=== PATIENT | female | born 1945 | race Caucasian/White ===

== ENCOUNTER 2016-11-04 17:16 | Inpatient (IN) ==
--- NOTE | 2016-11-04 18:01 | EKG Report ---
Stationary ECG Study [facility] ER Test Date: 11/04/2016 5:56:05 PM Pat Name: ZEESHAN RILEY Department: Room: Gender: F Line Technician: : 1945 Requested by: Linda Lomeli Order Number: [id number] Reading MD: SHAINA PIZANO Intervals [place] Rate: 67 P: 37 SC: 158 QRS: 32 QRSD: 96 T: 55 QT: 395 QTc: 411 Interpretive Statements SINUS RHYTHM LOW QRS VOLTAGE IN PRECORDIAL LEADS Electronically Signed On 11-04-16 18:51:13 CDT by SHAINA PIZANO [email or web address]
--- NOTE | 2016-11-04 18:33 | XRay Report ---
Single view the chest. Indication: Back pain and shoulder pain and jaw pain. The heart is upper limits of normal in size. Calcified lymph nodes are seen in the AP window. A calcified granuloma is present in the left lung base. There are mild hypoaeration changes at the lung bases. No consolidation, pneumothorax, or pleural effusion. Impression: Basilar hypoaeration. Evidence of previous granulomatous disease. PROCEDURE INTERPRETED AT [facility] DEPARTMENT OF RADIOLOGY Final Report Signed by: Dr. Willow Jesus
[2016-11-04 19:07] LABS: Basophils # 0.1 10*3/uL (0.0-0.2); Basophils % 0.7 % (0.0-0.8); Eosinophils # 0.1 10*3/uL (0.0-0.87); Eosinophils % 1.5 % (0.00-10.9); Hematocrit 37.3 VOL% (35.7-47.0); Hemoglobin 13.4 GM/DL (12.0-16.0); Immature Granulocytes % 0.4 %; Immature Granulocytes Absolute 0.03 #; Lymphocytes # 3.8 10*3/uL (1.4-4.0); Lymphocytes % 53.8 % (21.3-54.2); Mean Corpuscular HGB Conc 35.9 GM/DL (32-36); Mean Corpuscular Hemoglobin 31 PG (27-34); Mean Corpuscular Volume 85.7 FL (87-102); Mean Platelet Volume 8.8 FL (9.6-12.0); Monocytes # 0.6 10*3/uL (0.11-0.8); Monocytes % 8.4 % (1.7-12.7); Neutrophils # 2.5 10*3/uL (1.4-7.4); Neutrophils % 35.2 % (38.7-73.9); Platelet Count 293 T/CUMM (130-400); Red Blood Count 4.35 MC/CUMM (3.8-5.5); Red Cell Distribution Width 12.8 % (9.3-17.3); White Blood Count 7.1 T/CUMM (4-12)
[2016-11-04] MEDS ORDERED: ONDANSETRON 4 MG/2 ML VIAL IV STA (19:28)
[2016-11-04] MEDS ORDERED: MORPHINE 2 MG/1 ML SYRINGE IV STA (19:28)
[2016-11-04] MEDS ORDERED: PANTOPRAZOLE 40 MG VIAL IV STA (19:28)
[2016-11-04] MEDS ORDERED: ALUM/MAG/SIMETH/LIDO VISC 1:1 30 ML BOTTLE PO STA (19:28)
[2016-11-04] MEDS ORDERED: NITROGLYCERIN 2% OINT 1 INCH/GM PACK TOP STA (19:28)
[2016-11-04] MEDS ORDERED: ASPIRIN 325 MG TABLET PO STA (19:28)
--- NOTE | 2016-11-04 19:31 | Emergency Department Note ---
IRavi Emily, am scribing for, and in the presence of, James Cool MD 19: 13. ISilvina Charles R, MD, personally performed the services described in this documentation, ascribed by Carey Rodrgiues in my presence, and it is both accurate and complete . Arrival - Arrival Chief Complaint: Back Stated Complaint: Pain in back between shoulder blades ED Nursing Triage Note: PT AMBULATORY TO TRIAGE WITH C/O HAVING PAIN TO UPPER BACK BETWEEN SHOULDER BLADES. PT STATES SHE FEELS LIKE SHE HAS INDIGESTION. PT DENIES ANY SOB OR N/V. PT STATES PAIN TO LEFT JAW AND SHOULDER PAIN. Mode of Arrival: Ambulatory Limitations: No Limitations Source: Patient Time Seen by Provider: 11/04/16 18:21 - History of Present Illness HPI Narrative: Pt is a 71 y/o female who came to ED with c/o pain between shoulder blades, along with intermittent bilateral jaw pain and shooting left arm pain that started 2-3 days ago but has become more frequent. Pt reports calling Dr. Stephanie Neal office for appt this morning, but no response yet and called Catarina 's office for check for next week, due to these sxs. She notes having more belching than nml, last night. Pt states waking up the other morning in pain, but eased up and she went back to bed. She had a recent stress test, in which she states she passed. However, her brother passed his stress test and found on his next one two aneurysms and CAD; and Mother had extensive heart disease. Pt denies chest pain, SOB, nausea, diaphoresis, orthopnea, weakness. Pt states she has never drank ETOH, smoked tobacco, or used drugs. She does take thyroid medication daily and has borderline DM. Pt states this pain lasts for awhile, but will ease up on its own. Pt denies lifting heavy objects or recent injury. Onset (ago): day(s) Consistency: constant Severity: mild Severity scale (1-10): 3 Quality: aching Allergies/Adverse Reactions: Allergies Allergy/AdvReac Type Severity Reaction Status Date / Time Sulfa (Sulfonamide Allergy HIVES Verified 11/04/16 17:56 Antibiotics) Home Medications: Home Medications Medication Instructions Recorded Confirmed Type Aspirin 325 mg PO BEDTIME 11/04/16 11/04/16 History Atorvastatin [Lipitor] 10 mg PO BEDTIME 11/04/16 11/04/16 History Esomeprazole Magnesium [Nexium] 20 mg PO BID 11/04/16 11/04/16 History Estrogens(Conj) Tab [Premarin Tab] 0.3 mg PO TUSA 11/04/16 11/04/16 History Fexofenadine [Karen] 180 mg PO BEDTIME 11/04/16 11/04/16 History Gemfibrozil [Gemfibrozil] 600 mg PO QAM 11/04/16 11/04/16 History Levothyroxine Tab [Synthroid Tab] 75 mcg PO DAILY@0700 11/04/16 11/04/16 History Losartan Potassium [Losartan 50 mg PO QAM 11/04/16 11/04/16 History Potassium] Metoprolol Succinate Xl [Toprol Xl] 25 mg PO QAM 11/04/16 11/04/16 History [place]-3/Dha/Epa/Fish Oil [Fish Oil 2 each PO BEDTIME 11/04/16 11/04/16 History 1,000 mg Softgel] Ropinirole HCl [Ropinirole HCl] 2 mg PO BEDTIME 11/04/16 11/04/16 History hydroCHLOROthiazide 25 mcg PO QAM 11/04/16 11/04/16 History [Hydrochlorothiazide] Review of System - Review of System 12 point system: reviewed and no additional remarkable complaints except as stated - Review of System Constitutional: Absent: chills, diaphoresis, fever Respiratory: Absent: cough, respiratory distress Cardiovascular: Absent: dyspnea on exertion, orthopnea Gastrointestinal: Absent: abdominal pain, nausea, vomiting Musculoskeletal: Present: arm pain (left arm), neck pain (bilateral jaw), upper back pain (between shoulder blades starting point). Absent: leg pain Skin: Absent: rash Neurological: Absent: headache, numbness, paresthesias Medical,Surgical,& Family Hx - Surgical History Surgical History: noncontributory - Family History Family History: noncontributory - Social History Smoking Status: Never smoker Frequency of Alcohol Use: None Type of Drug Use: None Marital Status: Single Lives With:: Alone Functional capacity: independent ambulation Exam Vital Signs: Vital Signs Temperature 98.6 F 11/04/16 18:15 Pulse Rate 69 09/18/17 18:45 Respiratory Rate 10 L 11/04/16 18:45 Blood Pressure 153/88 11/04/16 18:45 O2 Sat by Pulse Oximetry 100 11/04/16 19:00 - General General appearance: alert, in no apparent distress - Head Head exam: Present: atraumatic, normocephalic - Eye Eye exam: Present: PERRL, EOMI - ENT ENT exam: Present: mucous membranes moist. Absent: mucous membranes dry - Neck Neck exam: Present: full ROM - Chest Chest inspection: Present: symmetric chest wall rise - Respiratory Respiratory exam: Present: normal lung sounds bilaterally. Absent: respiratory distress - Cardiovascular Cardiovascular exam: Present: regular rate, normal rhythm, normal heart sounds - Abdominal Exam Abdominal exam: Present: soft. Absent: tenderness - Extremities Exam Extremities exam: Present: full ROM. Absent: pedal edema - Neurological Exam Neurological exam: Present: alert, oriented X3, CN II-XII intact. Absent: motor sensory deficit - Psychiatric Psychiatric exam: Present: normal affect, normal mood - Skin Skin exam: Present: warm, dry Course - Consultations Consultation #1: Dr. Kadi Jeffries will admit for Dr. Adalberto Neal Time: 21:30 Results - Labs CBC & BMP: 11/04/16 18:58 11/04/16 18:58 Lab Results: I have reviewed the patients labs Labs: Laboratory Tests 11/04/16 18:58 WBC 7.1 RBC 4.35 Hgb 13.4 Hct 37.3 MCV 85.7 L Plt Count 293 MPV 8.8 L Neut % (Auto) 35.2 L Laboratory Tests 11/04/16 11/04/16 11/04/16 18:58 18:58 18:58 Total Counted 100 Segmented Neutrophils 42 L Lymphocytes 53 Monocytes 4 Eosinophils 1 Platelet Estimate Normal D-Dimer, Quantitative Sodium 138 Potassium 3.6 Chloride 105 Carbon Dioxide 26 BUN 21 H BUN/Creatinine Ratio 23.00 H Total Creatine Kinase 195 H CK-MB (CK-2) 2.8 Troponin I < 0.015 Lipase Urine Color Straw Urine Appearance Clear Urine pH 6.0 Ur Specific [place] 1.005 Urine Blood Negative Urine Nitrate Negative Urine Urobilinogen < 2.0 H Urine Leukocytes Negative Urine RBC <1 Urine WBC <1 11/04/16 11/04/16 18:58 19:28 Total Counted Segmented Neutrophils Lymphocytes Monocytes Eosinophils Platelet Estimate D-Dimer, Quantitative <= 0.5 Sodium Potassium Chloride Carbon Dioxide BUN BUN/Creatinine Ratio Total Creatine Kinase CK-MB (CK-2) Troponin I Lipase 239.0 Urine Color Urine Appearance Urine pH Ur Specific [place] Urine Blood Urine Nitrate Urine Urobilinogen Urine Leukocytes Urine RBC Urine WBC Disposition Clinical Impression: Chest pain Case discussed with: patient, patient's family Disposition: Still a Patient Condition: Stable Time of Disposition: 21:30
[2016-11-04 19:33] LABS: Apearance,Urine CLEAR (Clear); Bilirubin,Urine Negative (Negative); Blood, Urine Negative (Negative); Glucose,Urine (UA) Negative (Negative); Ketones,Urine Negative (Negative); Nitrite,Urine Negative (Negative); Protein,Urine Negative; RBC,Urine <1 /HPF (0-4); Urine Color Straw (Yellow); Urine Specific Gravity 1.005 (1.001-1.035); Urine Urobilinogen < 2.0 EU/DL (0.2-1.0); WBC,Urine <1 /HPF (0-6)
[2016-11-04 19:37] LABS: Alanine Aminotransferase 45 U/L (13-56); Albumin 4.1 G/DL (3.4-5.0); Alkaline Phosphatase 107 U/L (45-117); Aspartate Amino Transferase 32 U/L (0-37); Blood Urea Nitrogen 21 MG/DL (7-18); Calcium 9.3 MG/DL (8.5-10.1); Magnesium 2.4 MG/DL (1.8-2.4); Potassium 3.6 MMOL/L (3.5-5.1); Sodium 138 MMOL/L (136-145); Total Protein 7.6 G/DL (6.4-8.3); Troponin I Only < 0.015 NG/ML (0.00-0.045)
[2016-11-04] MEDS ORDERED: ALUM/MAG/SIMETH/LIDO VISC 1:1 30 ML BOTTLE PO ONE (19:44)
[2016-11-04] MEDS ORDERED: NITROGLYCERIN 2% OINT 1 INCH/GM PACK TOP ONE (19:44)
[2016-11-04] MEDS ORDERED: ASPIRIN 325 MG TABLET ONE (19:44)
[2016-11-04] MEDS ORDERED: PANTOPRAZOLE 40 MG VIAL IV ONE (19:44)
[2016-11-04] MEDS ORDERED: ONDANSETRON 4 MG/2 ML VIAL ONE (19:44)
[2016-11-04] MEDS ORDERED: MORPHINE 2 MG/1 ML SYRINGE ONE (19:44)
[2016-11-04 19:49] LABS: Glucose 89 MG/DL (74-106); Osmolality,Calculated 276.7 MOS/KG (273-304)
[2016-11-04 20:05] LABS: Eosinophils 1 % (0-10); Lymphocytes 53 % (20-55); Platelet Estimate Normal; Segmented Neutrophils 42 % (50-85); Total Cells Counted 100
[2016-11-04] MEDS ORDERED: ENOXAPARIN 100 MG/ML SYRINGE SUBCUT STA (21:04)
[2016-11-04] MEDS ORDERED: ENOXAPARIN 80 MG/0.8 ML SYRINGE SUBCUT ONE (21:07)
[2016-11-04] MEDS ORDERED: ONDANSETRON 4 MG/2 ML VIAL IV PRN (21:56)
[2016-11-04] MEDS ORDERED: MORPHINE 2 MG/1 ML SYRINGE IV PRN (21:56)
[2016-11-04] MEDS ORDERED: ACETAMINOPHEN 325 MG TABLET PO PRN (21:56)
[2016-11-04] MEDS: SODIUM CHLORIDE 0.9% 1,000 ML IV SCH (23:57)
[2016-11-05] MEDS ORDERED: MORPHINE 2 MG/1 ML SYRINGE ONE
[2016-11-05] MEDS: rOPINIRole 1 MG TABLET PO SCH ×2 (00:17→20:44)
[2016-11-05] MEDS ORDERED: NITROGLYCERIN 2% OINT 1 INCH/GM PACK TOP ONE (06:36)
[2016-11-05] MEDS: NITROGLYCERIN 2% OINT 1 INCH/GM PACK TOP SCH ×4 (06:36→17:58)
[2016-11-05 07:42] LABS: Apearance,Urine CLEAR (Clear); Bilirubin,Urine Negative (Negative); Blood, Urine Negative (Negative); Glucose,Urine (UA) Negative (Negative); Ketones,Urine Negative (Negative); Nitrite,Urine Negative (Negative); Protein,Urine Negative; RBC,Urine <1 /HPF (0-4); Squamous Epithelial Cell,Urine Occasional /HPF (0-10); Urine Color Yellow (Yellow); Urine Specific Gravity 1.011 (1.001-1.035); Urine Urobilinogen < 2.0 EU/DL (0.2-1.0); WBC,Urine <1 /HPF (0-6)
[2016-11-05] MEDS: LEVOTHYROXINE 75 MCG TABLET PO SCH (07:47)
--- NOTE | 2016-11-05 08:17 | EKG Report ---
Stationary ECG Study [facility] ER Test Date: 11/05/2016 8:15:54 AM Pat Name: ZEESHAN RILEY Department: Room: Gender: F High Pressure Operator: : 1945 Requested by: James Lang Order Number: [id number] Reading MD: MADELEINE RIBERA Intervals [place] Rate: 59 P: 39 [place]: 168 QRS: 66 QRSD: 97 T: 69 QT: 421 QTc: 420 Interpretive Statements SINUS RHYTHM at 59 bpm LOW QRS VOLTAGE IN PRECORDIAL LEADS Electronically Signed On 11-08-16 17:24:42 CDT by MADELEINE RIBERA [email or web address]
[2016-11-05] MEDS ORDERED: ASPIRIN EC 81 MG TABLET PO SCH (09:00)
[2016-11-05] MEDS ORDERED: PANTOPRAZOLE 40 MG VIAL IV SCH (09:00)
[2016-11-05] MEDS ORDERED: ENOXAPARIN 80 MG/0.8 ML SYRINGE SUBCUT SCH (09:00)
[2016-11-05 09:41] LABS: Basophils % 0.8 % (0.0-0.8); Eosinophils # 0.1 10*3/uL (0.0-0.87); Eosinophils % 1.3 % (0.00-10.9); Hematocrit 33.1 VOL% (35.7-47.0); Hemoglobin 11.8 GM/DL (12.0-16.0); Immature Granulocytes % 0.4 %; Immature Granulocytes Absolute 0.02 #; Lymphocytes # 2.9 10*3/uL (1.4-4.0); Lymphocytes % 55.5 % (21.3-54.2); Mean Corpuscular HGB Conc 35.6 GM/DL (32-36); Mean Corpuscular Hemoglobin 31 PG (27-34); Mean Corpuscular Volume 86.6 FL (87-102); Mean Platelet Volume 8.7 FL (9.6-12.0); Monocytes # 0.6 10*3/uL (0.11-0.8); Monocytes % 10.5 % (1.7-12.7); Neutrophils # 1.7 10*3/uL (1.4-7.4); Neutrophils % 31.5 % (38.7-73.9); Platelet Count 227 T/CUMM (130-400); Red Blood Count 3.82 MC/CUMM (3.8-5.5); Red Cell Distribution Width 12.9 % (9.3-17.3); White Blood Count 5.2 T/CUMM (4-12)
[2016-11-05 10:04] LABS: Alanine Aminotransferase 36 U/L (13-56); Albumin 3.4 G/DL (3.4-5.0); Alkaline Phosphatase 84 U/L (45-117); Aspartate Amino Transferase 27 U/L (0-37); Bilirubin,Total < 0.39 MG/DL (0.2-1.0); Blood Urea Nitrogen 18 MG/DL (7-18); Calcium 8.5 MG/DL (8.5-10.1); Cholesterol 178 MG/DL (50-200); Glucose 146 MG/DL (74-106); HDL Cholesterol 46 MG/DL (40-60); Magnesium 2.4 MG/DL (1.8-2.4); Osmolality,Calculated 287.1 MOS/KG (273-304); Potassium 3.8 MMOL/L (3.5-5.1); Risk Ratio 3.87; Sodium 142 MMOL/L (136-145); Total Protein 5.8 G/DL (6.4-8.3); Triglycerides 299 MG/DL (2-150); VLDL CHOLESTEROL 59.8 MG/DL
[2016-11-05 10:06] LABS: Eosinophils 1 % (0-10); Giant Platelets Few; Hypochromasia 1+; Lymphocytes 57 % (20-55); Ovalocytes Slight; Platelet Estimate Adequate; Segmented Neutrophils 31 % (50-85); Total Cells Counted 100
[2016-11-05] MEDS ORDERED: ACETAMINOPHEN 325 MG TABLET ONE (11:42)
[2016-11-05] MEDS: LOSARTAN 50 MG TABLET PO SCH ×2 (13:31→15:09)
[2016-11-05] MEDS: DOCUSATE SODIUM 100 MG CAPSULE PO SCH ×3 (13:31→20:43)
[2016-11-05] MEDS: GEMFIBROZIL 600 MG TABLET PO SCH ×2 (13:31→15:09)
[2016-11-05] MEDS: METOPROLOL SUCCINATE XL 25 MG TABLET PO SCH ×2 (13:32→15:10)
[2016-11-05] MEDS: PANTOPRAZOLE 40 MG TABLET PO SCH ×2 (13:32→20:43)
--- NOTE | 2016-11-05 13:50 | Cardiology Consult Note ---
Assessment and Plan - Time spent with patient Time spent with patient: Greater than 30 minutes (1) Back pain Status: Acute Assessment and plan: SEE PLAN OF CARE LISTED BELOW. Current Visit: Yes (2) GERD (gastroesophageal reflux disease) Status: Chronic Assessment and plan: SEE PLAN OF CARE LISTED BELOW. Current Visit: Yes (3) History of stomach ulcers Status: Chronic Assessment and plan: SEE PLAN OF CARE LISTED BELOW. Current Visit: Yes (4) Dyslipidemia Status: Chronic Assessment and plan: SEE PLAN OF CARE LISTED BELOW. Current Visit: Yes (5) Hypertension Status: Chronic Assessment and plan: SEE PLAN OF CARE LISTED BELOW. Current Visit: Yes (6) Anemia Status: Chronic Assessment and plan: SEE PLAN OF CARE LISTED BELOW. Current Visit: Yes (7) Hypothyroid Status: Chronic Assessment and plan: SEE PLAN OF CARE LISTED BELOW. Current Visit: Yes (8) Hypertriglyceridemia Status: Acute Assessment and plan: SEE PLAN OF CARE LISTED BELOW. Current Visit: Yes History of Present Illness - Data of Consult Patient: known to practice within the last 3 years Consult date: 11/05/16 Requesting Physician: James Cool - Consult Narrative Reason for consult: back pain History of present illness: FULL STACK DEVELOPER : Dr. Elmore Ms. Baez is a 71 year old female without known coronary artery disease, routinely followed by Dr. bardales. Cardiac risk factors include: Hypertension , dyslipidemia, family history of CAD (mother and brother) and sedentary lifestyle. Lifetime non-smoker. Past medical history includes: Hypothyroidism , anxiety and gastric ulcer. Patient just recently saw Dr. badrales in the cardiology clinic September of this year. She was anxious and requested cardiac workup as her brother recently underwent CABG in August. She underwent cardiac stress test September 26, 2016. She had fair functional capacity reaching 7.1 mets. Normal perfusion study, low risk for future cardiovascular events. LVEF calculated to be 91%. No echocardiogram noted and I will mass. Has never undergone LHC. Patient presented to [facility] yesterday evening with complaints of back pain located in the middle of her scapula that onset 2-3 days ago. Describes it as a squeezing/intense aching pain. Unable to rate her pain on a scale from 1-10. She reports that she cannot specifically remember what she was doing when this pain began. This has been intermittent, coming and going since that time. She reports after going to a birthday constitution party and eating very badly earlier in the day, it awoke her from her sleep several times later that night. At times she has also experienced bilateral jaw pain and left arm pain that only last seconds. No associated shortness of breath, diaphoresis or nausea. She denies any type of chest pain, heaviness or tightness. Absolutely no exertional component has been noted. She tells me that she goes up and down her stairs in her home multiple times a day which does not bring on or worsen her back, jaw or left arm pain. When asked about aggravating factors, she tells me that she has recently noticed that it comes on every time after she eats a meal. Of note, she does have history of gastric ulcer. She also confirms indigestion. She reports that her back pain is sometimes made better when she stretches it out. She often belches when this pain onsets. However, she is unsure if this actually alleviates or helps the pain. Certain positioning does not alleviate or exacerbate her pain. Not reproducible to light palpation. Not worse with deep breath. Yesterday, she became concerned about her symptomology. She called Dr. bardales's office and was instructed to report to the ED for further evaluation. She has since been admitted to family medicine's practice. Housed in the telemetry unit. Cardiology has been consulted to further evaluate her symptomology. Patient was seen and examined on the telemetry unit. Currently without chest pain, heaviness or tightness. Denies back pain, arm pain or jaw pain. Atypical in nature. Sounds GI. Negative cardiac biomarkers. EKG without ischemic change. Patient just recently had low risk stress test September 2016. At this point, we will continue to cycle cardiac biomarkers and EKGs. Echocardiogram ordered. Continue aspirin, beta-blockade, ARB, lipid-lowering agent and nitrates. I will further discuss with Dr. Walker regarding the need for further cardiac workup. Further plan and addendum to follow. Patient may benefit from GI evaluation. IMPRESSION AND PLAN 1. BACK PAIN WITH INTERMITTENT LEFT ARM AND JAW PAIN - Atypical in nature. Sounds GI. Negative cardiac biomarkers. EKG without ischemic change. Patient just recently had low risk stress test September 2016. At this point, we will continue to cycle cardiac biomarkers and EKGs. Echocardiogram ordered. Continue aspirin, beta-blockade, ARB, lipid-lowering agent and nitrates. I will further discuss with Dr. Walker regarding the need for further cardiac workup. Further plan and addendum to follow. Patient may benefit from GI evaluation. 2. HYPERTENSION - Under well control. Continue current plan of care. 3. DYSLIPIDEMIA - Continue lipid-lowering agent. LDL 85. 4. ANEMIA - Chronic, stable. Daily CBC. 5. HISTORY OF ANXIETY - Under well control. Management per attending. 6. HYPOTHYROIDISM - Continue thyroid replacement. TSH added to lab draw. 7. HISTORY OF GASTRIC ULCER IN THE REMOTE PAST - Continue PPI. 8. HYPERTRIGLYCERIDEMIA - Increase fish oil dose. I will check hemoglobin A1c. 9. GERD - Continue PPI. CC: Adalberto Neal MD - Home Medications and Allergies Home Medications: Home Medications Medication Instructions Recorded Confirmed Type Aspirin 325 mg PO BEDTIME 11/04/16 11/04/16 History Atorvastatin [Lipitor] 10 mg PO BEDTIME 11/04/16 11/04/16 History Esomeprazole Magnesium [Nexium] 20 mg PO BID 11/04/16 11/04/16 History Estrogens(Conj) Tab [Premarin Tab] 0.3 mg PO TUSA 11/04/16 11/04/16 History Fexofenadine [Karen] 180 mg PO BEDTIME 11/04/16 11/04/16 History Gemfibrozil [Gemfibrozil] 600 mg PO QAM 11/04/16 11/04/16 History Levothyroxine Tab [Synthroid Tab] 75 mcg PO DAILY@0700 11/04/16 11/04/16 History Losartan Potassium [Losartan 50 mg PO QAM 11/04/16 11/04/16 History Potassium] Metoprolol Succinate Xl [Toprol Xl] 25 mg PO QAM 11/04/16 11/04/16 History [place]-3/Dha/Epa/Fish Oil [Fish Oil 2 each PO BEDTIME 11/04/16 11/04/16 History 1,000 mg Softgel] Ropinirole HCl [Ropinirole HCl] 2 mg PO BEDTIME 11/04/16 11/04/16 History hydroCHLOROthiazide 25 mcg PO QAM 11/04/16 11/04/16 History [Hydrochlorothiazide] Allergies/Adverse Reactions: Allergies Allergy/AdvReac Type Severity Reaction Status Date / Time Sulfa (Sulfonamide Allergy HIVES Verified 11/04/16 17:56 Antibiotics) - Constitutional Constitutional: Present: as per HPI. Absent: chills, fatigue, fever(s), frequent falls, headache(s), weakness, weight gain, weight loss - Cardiovascular Cardiovascular: Present: as per HPI, radiating jaw, neck or arm pain. Absent: chest pain at rest, chest pain with activity, claudication, diaphoresis, dyspnea , dyspnea on exertion, edema, lightheadedness, orthopnea, palpitations, PND - Respiratory Respiratory: Present: as per HPI. Absent: cough, dyspnea, hemoptysis, dyspnea on exertion, wheezing, snoring, pain on inspiration, change in phlegm color - Gastrointestinal Gastrointestinal: Present: as per HPI, abdominal pain - Neurological Neurological: Present: as per HPI. Absent: abnormal gait, abnormal speech, behavioral changes, disequilibrium, dizziness, frequent falls, syncope Medical,Surgical,& Family Hx - Medical History Cardio: History of: Hypertension Endocrine: History of: Dyslipidemia Rheumatology: History of;: Rheumatoid Arthritis Genitourinary: History of: Recurring Urinary Tract Infections Gastrointestinal: History of: GERD, GI Problems (constipation) - Family History Family History: Reports;: Family Cancer (skin grandfather), Family Diabetes, Family Heart Disease, Family Hypertension, Family Stroke - Social History Smoking Status: Never smoker Frequency of Alcohol Use: None Type of Drug Use: None Physical Examination Vital Signs Temp Pulse Resp BP Pulse Ox 98.6 F 72 17 140/87 98 11/04/16 17:52 11/04/16 17:52 11/04/16 17:52 11/04/16 17:52 11/04/16 17:52 Exam: General: Appears well with no apparent distress. Pleasant and cooperative. Appears comfortable. HEENT: PERRL, normocephalic, atraumatic. Mucous membranes moist. No jaundice noted. Conjunctiva moist and clear, sclerae anicteric Neck: No JVD/HJR, no thyromegaly or lymphadenopathy noted. No carotid bruit appreciated Cardiac: Regular rate and rhythm. Soft systolic murmur. Lungs: Clear to auscultation without accessory muscle use to assist the respiratory pattern. Not requiring oxygen. Abdomen: Soft, bowel sounds normoactive. Nontender and nondistended. No abdominal bruit or thrill noted. No masses noted. Extremities: No clubbing, cyanosis noted. No edema noted. Upper extremity pulses 2+. Lower extremity pulses 2+. Capillary refill less than 3 seconds. Skin: No unusual lesions or rashes. No skin breakdown appreciated. Neuro: Awake, alert and oriented 3. Moves all extremities well without hemiparesis or paralysis. No essential tremor is appreciated. Result/EKG - Labs CBC & BMP: 11/05/16 09:25 11/05/16 09:25 Lab Results: I have reviewed the past 24 hour labs Labs: Laboratory Results - last 24 hr 11/04/16 11/04/16 11/04/16 18:58 18:58 18:58 WBC 7.1 RBC 4.35 Hgb 13.4 Hct 37.3 MCV 85.7 L MCH 31 MCHC 35.9 RDW 12.8 Plt Count 293 MPV 8.8 L Neut % (Auto) 35.2 L Lymph % (Auto) 53.8 Nicholas % (Auto) 8.4 Eos % (Auto) 1.5 Baso % (Auto) 0.7 Neut # (Auto) 2.5 Lymph # (Auto) 3.8 Nicholas # (Auto) 0.6 Eos # (Auto) 0.1 Baso # (Auto) 0.1 Total Counted 100 Immature Gran % 0.4 Nucleated RBC % 0.0 Immature Gran # 0.03 Segmented Neutrophils 42 L Lymphocytes 53 Monocytes 4 Eosinophils 1 Nucleated RBCs # 0.00 Platelet Estimate Normal Giant Platelets Immature Plt Fraction 0.0 Hypochromasia Ovalocytes D-Dimer, Quantitative Sodium 138 Potassium 3.6 Chloride 105 Carbon Dioxide 26 Anion Gap 10.6 BUN 21 H Creatinine 0.90 GFR Calculation 66 BUN/Creatinine Ratio 23.00 H Glucose 89 Calculated Osmolality 276.7 Calcium 9.3 Magnesium 2.4 Total Bilirubin 0.50 AST 32 ALT 45 Alkaline Phosphatase 107 Total Creatine Kinase 195 H CK-MB (CK-2) 2.8 Troponin I < 0.015 B-Natriuretic Peptide 63 Total Protein 7.6 Albumin 4.1 Globulin 3.5 Albumin/Globulin Ratio 1.1 Triglycerides Cholesterol LDL Cholesterol VLDL Cholesterol HDL Cholesterol Heart Disease Risk Ratio Lipase Urine Color Urine Appearance Urine pH Ur Specific [place] Urine Protein Urine Glucose (UA) Urine Ketones Urine Blood Urine Nitrate Urine Bilirubin Urine Urobilinogen Urine Leukocytes Urine RBC Urine WBC Ur Squamous Epith Cells Ur Culture Indicated? 11/04/16 11/04/16 11/04/16 18:58 18:58 19:28 WBC RBC Hgb Hct MCV MCH MCHC RDW Plt Count MPV Neut % (Auto) Lymph % (Auto) Nicholas % (Auto) Eos % (Auto) Baso % (Auto) Neut # (Auto) Lymph # (Auto) Nicholas # (Auto) Eos # (Auto) Baso # (Auto) Total Counted Immature Gran % Nucleated RBC % Immature Gran # Segmented Neutrophils Lymphocytes Monocytes Eosinophils Nucleated RBCs # Platelet Estimate Giant Platelets Immature Plt Fraction Hypochromasia Ovalocytes D-Dimer, Quantitative <= 0.5 Sodium Potassium Chloride Carbon Dioxide Anion Gap BUN Creatinine GFR Calculation BUN/Creatinine Ratio Glucose Calculated Osmolality Calcium Magnesium Total Bilirubin AST ALT Alkaline Phosphatase Total Creatine Kinase CK-MB (CK-2) Troponin I B-Natriuretic Peptide Total Protein Albumin Globulin Albumin/Globulin Ratio Triglycerides Cholesterol LDL Cholesterol VLDL Cholesterol HDL Cholesterol Heart Disease Risk Ratio Lipase 239.0 Urine Color Straw Urine Appearance Clear Urine pH 6.0 Ur Specific [place] 1.005 Urine Protein Negative Urine Glucose (UA) Negative Urine Ketones Negative Urine Blood Negative Urine Nitrate Negative Urine Bilirubin Negative Urine Urobilinogen < 2.0 H Urine Leukocytes Negative Urine RBC <1 Urine WBC <1 Ur Squamous Epith Cells Ur Culture Indicated? Not indicated 11/05/16 11/05/16 11/05/16 03:15 06:27 09:25 WBC 5.2 RBC 3.82 Hgb 11.8 L Hct 33.1 L MCV 86.6 L MCH 31 MCHC 35.6 RDW 12.9 Plt Count 227 D MPV 8.7 L Neut % (Auto) 31.5 L Lymph % (Auto) 55.5 H Nicholas % (Auto) 10.5 Eos % (Auto) 1.3 Baso % (Auto) 0.8 Neut # (Auto) 1.7 Lymph # (Auto) 2.9 Nicholas # (Auto) 0.6 Eos # (Auto) 0.1 Baso # (Auto) 0.0 Total Counted 100 Immature Gran % 0.4 Nucleated RBC % 0.0 Immature Gran # 0.02 Segmented Neutrophils 31 L Lymphocytes 57 H Monocytes 11 Eosinophils 1 Nucleated RBCs # 0.00 Platelet Estimate Adequate Giant Platelets Few Immature Plt Fraction 0.0 Hypochromasia 1+ Ovalocytes Slight D-Dimer, Quantitative Sodium Potassium Chloride Carbon Dioxide Anion Gap BUN Creatinine GFR Calculation BUN/Creatinine Ratio Glucose Calculated Osmolality Calcium Magnesium Total Bilirubin AST ALT Alkaline Phosphatase Total Creatine Kinase CK-MB (CK-2) Troponin I < 0.015 B-Natriuretic Peptide Total Protein Albumin Globulin Albumin/Globulin Ratio Triglycerides Cholesterol LDL Cholesterol VLDL Cholesterol HDL Cholesterol Heart Disease Risk Ratio Lipase Urine Color Yellow Urine Appearance Clear Urine pH 5.0 Ur Specific [place] 1.011 Urine Protein Negative Urine Glucose (UA) Negative Urine Ketones Negative Urine Blood Negative Urine Nitrate Negative Urine Bilirubin Negative Urine Urobilinogen < 2.0 H Urine Leukocytes Negative Urine RBC <1 Urine WBC <1 Ur Squamous Epith Cells Occasional Ur Culture Indicated? Not indicated 11/05/16 11/05/16 09:25 09:25 WBC RBC Hgb Hct MCV MCH MCHC RDW Plt Count MPV Neut % (Auto) Lymph % (Auto) Nicholas % (Auto) Eos % (Auto) Baso % (Auto) Neut # (Auto) Lymph # (Auto) Nicholas # (Auto) Eos # (Auto) Baso # (Auto) Total Counted Immature Gran % Nucleated RBC % Immature Gran # Segmented Neutrophils Lymphocytes Monocytes Eosinophils Nucleated RBCs # Platelet Estimate Giant Platelets Immature Plt Fraction Hypochromasia Ovalocytes D-Dimer, Quantitative Sodium 142 Potassium 3.8 Chloride 107 Carbon Dioxide 32 Anion Gap 6.8 BUN 18 Creatinine 0.90 GFR Calculation 66 BUN/Creatinine Ratio 20.00 Glucose 146 H Calculated Osmolality 287.1 Calcium 8.5 Magnesium 2.4 Total Bilirubin < 0.39 AST 27 ALT 36 Alkaline Phosphatase 84 Total Creatine Kinase CK-MB (CK-2) Troponin I B-Natriuretic Peptide 86 Total Protein 5.8 L Albumin 3.4 Globulin 2.4 Albumin/Globulin Ratio 1.4 Triglycerides 299 H Cholesterol 178 LDL Cholesterol 85.0 VLDL Cholesterol 59.8 HDL Cholesterol 46 Heart Disease Risk Ratio 3.87 Lipase Urine Color Urine Appearance Urine pH Ur Specific [place] Urine Protein Urine Glucose (UA) Urine Ketones Urine Blood Urine Nitrate Urine Bilirubin Urine Urobilinogen Urine Leukocytes Urine RBC Urine WBC Ur Squamous Epith Cells Ur Culture Indicated?
[2016-11-05] MEDS: SODIUM CHLORIDE 0.9% 1,000 ML IV SCH ×2 (15:02→21:55)
[2016-11-05] MEDS: hydroCHLOROthiazide 25 MG TABLET PO SCH ×2 (15:02→15:09)
[2016-11-05 15:05] LABS: Free T4 (Free Thyroxine) 1.26 NG/DL (0.76-1.46); Thyroid Stimulating Hormone 0.965 uIU/ml (0.358-3.74)
[2016-11-05] MEDS: ENOXAPARIN 40 MG/0.4 ML SYRINGE SUBCUT SCH (15:11)
[2016-11-05 15:26] LABS: Troponin I Only < 0.015 NG/ML (0.00-0.045)
[2016-11-05] MEDS ORDERED: ALUMINUM/MAGNES/SIMETH MAX STR 30 ML UDCUP PO PRN (17:36)
--- NOTE | 2016-11-05 17:53 | Family Practice History&Phys ---
Assessment and Plan (1) Atypical chest pain Status: Acute Assessment and plan: 11/05/2016: Cardiac isoenzymes series is in progress. Cardiology has evaluated her. Her EKG revealed no acute abnormality. Current Visit: Yes (2) GERD (gastroesophageal reflux disease) Status: Chronic Assessment and plan: 11/05/2016: GI will be consulted. I am also going to order a HIDA scan and gallbladder ultrasound Current Visit: Yes History of Present Illness Chief complaint: Chest pain History of present illness: Ms. Baez is a 71 year old female Patient 71-year-old white female presented emergency room day of admission with recurring episodes of substernal chest pain. Patient states the pain was between her shoulder blades and in her left shoulder. Patient is having dyspepsia which is noticed off and on for several weeks now. Patient has had previous stress thallium study that showed no acute abnormality. Patient became quite concerned about her recurring pain is she has a very strong family history of coronary artery disease in both her mother and brother. She does note that her pain seems to be worse after meals. She denies any associated nausea, vomiting or diaphoresis. He did have some right jaw pain on 1 of these events. She has a great deal difficult quantitating amount of time these episodes last which he told me in ballpark about 10 minutes is her best guess. She has no history of tobacco use, significant hypertension or diabetes. Patient does admit to being under quite a bit of emotional stress related to her '[facility]. She became tearful when we discussed this. Home Medications Medication Instructions Recorded Confirmed Type Aspirin 325 mg PO BEDTIME 11/04/16 11/04/16 History Atorvastatin [Lipitor] 10 mg PO BEDTIME 11/04/16 11/04/16 History Esomeprazole Magnesium [Nexium] 20 mg PO BID 11/04/16 11/04/16 History Estrogens(Conj) Tab [Premarin Tab] 0.3 mg PO TUSA 11/04/16 11/04/16 History Fexofenadine [Karen] 180 mg PO BEDTIME 11/04/16 11/04/16 History Gemfibrozil [Gemfibrozil] 600 mg PO QAM 11/04/16 11/04/16 History Levothyroxine Tab [Synthroid Tab] 75 mcg PO DAILY@0700 11/04/16 11/04/16 History Losartan Potassium [Losartan 50 mg PO QAM 11/04/16 11/04/16 History Potassium] Metoprolol Succinate Xl [Toprol Xl] 25 mg PO QAM 11/04/16 11/04/16 History [place]-3/Dha/Epa/Fish Oil [Fish Oil 2 each PO BEDTIME 11/04/16 11/04/16 History 1,000 mg Softgel] Ropinirole HCl [Ropinirole HCl] 2 mg PO BEDTIME 11/04/16 11/04/16 History hydroCHLOROthiazide 25 mcg PO QAM 11/04/16 11/04/16 History [Hydrochlorothiazide] Allergies Allergy/AdvReac Type Severity Reaction Status Date / Time Sulfa (Sulfonamide Allergy HIVES Verified 11/04/16 17:56 Antibiotics) - Constitutional Constitutional: Absent: chills, fatigue, fever(s), weakness - EENT Eyes: Absent: blurry vision, loss of vision Ears: Absent: decreased hearing, ear pain Nose, mouth and throat: Absent: hoarseness, sinus pressure, sore throat, throat swelling - Cardiovascular Cardiovascular: Present: chest pain at rest. Absent: diaphoresis, dyspnea, dyspnea on exertion, lightheadedness, orthopnea, palpitations, PND - Respiratory Respiratory: Absent: cough, dyspnea, wheezing - Gastrointestinal Gastrointestinal: Present: abdominal pain, dyspepsia. Absent: diarrhea, dysphagia, nausea, vomiting - Genitourinary Genitourinary: Absent: dysuria, urinary frequency, urinary hesitancy - Musculoskeletal Musculoskeletal: Absent: arthralgias, back pain - Neurological Neurological: Absent: confusion, focal weakness, numbness, paresthesias - Psychiatric Psychiatric: Absent: anxiety, confusion - Endocrine Endocrine: Absent: fatigue, polydipsia, polyphagia - Hematologic/Lymphatic Hematologic/Lymphatic: Absent: easy bleeding, easy bruising Medical,Surgical,& Family Hx - Medical History Cardio: History of: Hypertension Endocrine: History of: Dyslipidemia Rheumatology: History of;: Rheumatoid Arthritis Genitourinary: History of: Recurring Urinary Tract Infections Gastrointestinal: History of: GERD, GI Problems (constipation) - Surgical History Surgical History: noncontributory - Family History Family History: Reports;: Family Cancer (skin grandfather), Family Diabetes, Family Heart Disease, Family Hypertension, Family Stroke - Social History Smoking Status: Never smoker Frequency of Alcohol Use: None Type of Drug Use: None Exam - Constitutional Vitals: Period Temp Pulse Resp BP Sys/Flores Pulse Ox Last 24 Hr 97.9 F-98.6 F 56-72 10-20 123-153/61-88 97-100 Exam: General: Objective patient is a well-developed white female in no acute distress. She is quite articulate and able to give a good history. She did become quite upset we discussed her 's recent senior care. HEENT: Pupils equal and reactive to light. Patent nares and airway Neck: No meningismus, adenopathy, thyromegaly. There are no auscultated carotid bruits. Cardiovascular: Regular rhythm. No murmurs or gallops Chest: Clear to auscultation without rales rhonchi wheezes. Abdomen: Soft, patient did have minimal right upper quadrant tenderness directly. There is no positive Alejandra's sign. No masses, rebound, guarding or tenderness. Neuro: Cranial nerves intact and DTRs and strength symmetric in all extremities. Dermatologic: No evidence of abnormal lesions or masses. Musculoskeletal: There is no joint swelling or tenderness or deformity. Extremities: There is no calf swelling or tenderness. Results - Labs CBC & BMP: 11/05/16 09:25 11/05/16 09:25 Lab Results: I have reviewed the past 24 hour labs - EKG EKG results: no acute changes EKG shows: bradycardia (Sinus bradycardia with heart rate 59 bpm) - Diagnostic Findings Procedure: Chest x-ray: report reviewed by me (No acute abnormality seen)
--- NOTE | 2016-11-05 18:31 | ECHO Report ---
Kiana Baez Exam Date: 11/05/2016 14:54 Referring Physician: Technologist: Melissa Jarvis LRSAMY Age: 71 Ht (in): 63 Wt (lb): 157 Gender: F Exam Location: [facility] Echo Indications: hypothyroid, hypertriglycerdemia, dyslipidemia, HTN, anemia, chest pain, back pain, GERD, hx. stomach ulcers BP: 123 / 61 HR: 56 Rhythm: Sinus Technical Quality: IMPRESSIONS Normal chamber sizes 1+ concentric LVH Hyperdynamic LV systolic function with ejection fraction estimated be 70% without segmental wall motion abnormality 1+ tricuspid regurgitation with RVSP 29 mmHg plus RAP MEASUREMENTS (Male / Female) Normal Values 2D ECHO LV Diastolic Diameter PLAX 3.6 cm 4.2 - 5.9 / 3.9 - 5.3 cm LV Systolic Diameter PLAX 2.0 cm LV Fractional Shortening PLAX 44.0 % IVS Diastolic Thickness 1.1 cm 0.6 - 1.0 / 0.6 - 0.9 cm LVPW Diastolic Thickness 1.0 cm 0.6 - 1.0 / 0.6 - 0.9 cm RV Internal Dim ED PLAX 2.5 cm Aortic Root Diameter 2.4 cm LA Systolic Diameter LX 3.3 cm 3.0 - 4.0 / 2.7 - 3.8 cm DOPPLER TR Peak Velocity 271.0 cm/s TR Peak Gradient 29.4 mmHg FINDINGS Left Ventricle Normal left ventricular cavity size. Left ventricular ejection fraction is estimate Right Ventricle Normal right ventricular size. Right Atrium Normal right atrial size. Left Atrium Normal left atrial size. Mitral Valve Morphologically normal mitral valve. Aortic Valve The aortic valve is trileaflet and has normal motion. Tricuspid Valve Morphologically normal tricuspid valve. Trace tricuspid valve regurgitation. Tricuspid regurgitation velocities suggest a PAP of 29.4 mmHg + RAP. Pulmonic Valve Morphologically normal pulmonic valve. Pericardium No pericardial effusion. Aorta Normal size aortic root and proximal ascending aorta. Eze Walker (Electronically Signed) Final Date: 05 November 2016 18:15
[2016-11-05 19:01] LABS: Troponin I Only < 0.015 NG/ML (0.00-0.045)
[2016-11-05] MEDS: ASPIRIN 325 MG TABLET PO SCH (20:44)
[2016-11-05] MEDS: OMEGA 3 ACID ETHYL ESTERS 1 GM CAPSULE PO SCH (20:44)
[2016-11-05] MEDS: FEXOFENADINE 180 MG TABLET PO SCH (20:44)
[2016-11-05] MEDS: ATORVASTATIN 10 MG TABLET PO SCH (20:44)
[2016-11-05] MEDS ORDERED: OMEGA 3 ACID ETHYL ESTERS 1 GM CAPSULE PO SCH (21:00)
[2016-11-05] MEDS ORDERED: ESTROGENS (CONJ) 0.3 MG TABLET PO SCH (21:00)
[2016-11-05] MEDS ORDERED: ATORVASTATIN 10 MG TABLET PO SCH (21:00)
[2016-11-05 22:31] LABS: Troponin I Only < 0.015 NG/ML (0.00-0.045)
[2016-11-06] MEDS: NITROGLYCERIN 2% OINT 1 INCH/GM PACK TOP SCH ×4 (05:30→18:13)
[2016-11-06 05:36] LABS: Basophils % 0.5 % (0.0-0.8); Eosinophils # 0.1 10*3/uL (0.0-0.87); Eosinophils % 2.2 % (0.00-10.9); Hematocrit 34.4 VOL% (35.7-47.0); Hemoglobin 12.5 GM/DL (12.0-16.0); Immature Granulocytes % 0.3 %; Immature Granulocytes Absolute 0.02 #; Lymphocytes # 3.7 10*3/uL (1.4-4.0); Lymphocytes % 57.8 % (21.3-54.2); Mean Corpuscular HGB Conc 36.3 GM/DL (32-36); Mean Corpuscular Hemoglobin 31 PG (27-34); Mean Corpuscular Volume 85.8 FL (87-102); Mean Platelet Volume 8.9 FL (9.6-12.0); Monocytes # 0.6 10*3/uL (0.11-0.8); Neutrophils # 1.9 10*3/uL (1.4-7.4); Neutrophils % 29.2 % (38.7-73.9); Platelet Count 263 T/CUMM (130-400); Red Blood Count 4.01 MC/CUMM (3.8-5.5); Red Cell Distribution Width 12.8 % (9.3-17.3); White Blood Count 6.4 T/CUMM (4-12)
[2016-11-06 06:04] LABS: Eosinophils 1 % (0-10); Lymphocytes 58 % (20-55); Segmented Neutrophils 33 % (50-85); Total Cells Counted 100
[2016-11-06 06:05] LABS: Atypical Lymphocytes Few
[2016-11-06 06:06] LABS: Calcium 8.8 MG/DL (8.5-10.1); Magnesium 2.3 MG/DL (1.8-2.4); Osmolality,Calculated 283.1 MOS/KG (273-304); Potassium 3.7 MMOL/L (3.5-5.1)
[2016-11-06 06:07] LABS: Hypochromasia 1+; Microcytosis 1+
[2016-11-06 06:09] LABS: Ovalocytes Slight
[2016-11-06 06:10] LABS: Platelet Estimate Normal
--- NOTE | 2016-11-06 07:32 | EKG Report ---
Stationary ECG Study [facility] Test Date: 11/06/2016 7:33:30 AM Pat Name: ZEESHAN RILEY Department: Room: 278 Gender: F Doll Surgeon: DELFINA : 1945 Requested by: Willow Salmeron Order Number: [id number] Reading MD: MADELEINE RIBERA Intervals [place] Rate: 55 P: 50 MD: 142 QRS: 35 QRSD: 91 T: 59 QT: 414 QTc: 403 Interpretive Statements SINUS RHYTHM at 55 bpm LOW QRS VOLTAGE IN PRECORDIAL LEADS Electronically Signed On 11-09-16 12:12:39 CDT by MADELEINE RIBERA [email or web address]
--- NOTE | 2016-11-06 08:18 | Family Practice Progress Note ---
Family Practice - PN: Subj Interval history: Patient states she had episode of substernal chest pain last night that was relieved by morphine. States she is pain-free at present. She just got back from gallbladder ultrasound and I saw no evidence of cholelithiasis. I think we can cancel her HIDA scan. I discussed care with Dr. Edilberto Peña and she will be scheduled for EGD today. Exam (Progress Note) - Constitutional Vitals: Period Temp Pulse Resp BP Sys/Flores Pulse Ox Last 24 Hr 97.7 F-98.8 F 53-66 16-20 123-146/60-69 91-99 Exam: Objective well-developed white female no acute distress. She is able give an excellent history. She appears comfortable states she does not have any pain at present. Cardiovascular: The heart rate is regular without murmurs or gallops. Respiratory: Lungs clear to auscultation bilaterally. Abdomen: Abdomen soft nontender to palpation. Extremities: There is no calf swelling or tenderness. Results - Labs CBC & BMP: 11/06/16 05:08 11/06/16 05:08 Lab Results: I have reviewed the past 24 hour labs Assessment and Plan (1) Atypical chest pain Status: Acute Assessment and plan: 11/05/2016: Cardiac isoenzymes series is in progress. Cardiology has evaluated her. Her EKG revealed no acute abnormality. 11/06/2016: Patient continued to have substernal chest pain. Current Visit: Yes (2) GERD (gastroesophageal reflux disease) Status: Chronic Assessment and plan: 11/05/2016: GI will be consulted. I am also going to order a HIDA scan and gallbladder ultrasound 11/06/2016: Patient's been scheduled for EGD. Current Visit: Yes
--- NOTE | 2016-11-06 08:27 | Ultrasound Report ---
Right upper quadrant ultrasound Indication: Abdominal Pain Findings: The liver is normal in size and echogenicity. The gallbladder is fluid-filled without evidence of stones or sludge. The gallbladder wall thickness is 2.0 mm . The common bile duct measures 6.0 mm. The visualized portion of the pancreas appear within normal limits The right kidney is normal in size and echogenicity and measures 10.2 cm . No free fluid or free air seen. Impression: No evidence of abnormality demonstrated. Ultrasound images stored and captured. PROCEDURE INTERPRETED AT [facility] DEPARTMENT OF RADIOLOGY Final Report Signed by: Dr. Bryan Brady
[2016-11-06] MEDS: SODIUM CHLORIDE 0.9% 1,000 ML IV SCH (09:59)
[2016-11-06] MEDS: LEVOTHYROXINE 75 MCG TABLET PO SCH (09:59)
--- NOTE | 2016-11-06 10:37 | Gastrointestinal Consult Note ---
<Joyce Iyer - Last Filed: 11/06/16 10:30> Assessment and Plan (1) Atypical chest pain Status: Acute Assessment and plan: 11/06-several day history of epigastric discomfort radiating between shoulder blades without associated symptoms. Unable to obtain prior endoscopy records at this time. Reported history of ulcer in the past. No NSAID use reported. Plan for EGD today to further evaluate. Plan an addendum to followed by Dr. Peña. Current Visit: Yes History of Present Illness Chief complaint: Atypical chest pain History of present illness: Ms. Baez is a 71 year old female who was admitted to the hospital on yesterday with 3 day history of pain in her epigastric region as well as in between her shoulder blades. Patient has a prior history of CAD, hypertension, anemia. Patient states that she was in her usual state of health until several days ago when she had onset of pain. She states that the pain did not seem to be associated with any known factors did not seem to be aggravated by meals every time however states this does seem to worsen the pain at other times.. The pain was not associated with nausea or vomiting. She states that she felt like if she could just been out she can alleviate the pain but this was not successful. She states that she has not noticed any changes in her bowel habits including melena or hematochezia. She has had no recent weight loss. Patient denies any dysphagia however does report she has reflux seems to have worsened lately however prior to this was fairly controlled with her Nexium. The pain does not seem to be reproducible. Patient states that she presented to the emergency room for further evaluation due to the pain not improving. On admission, patient had cardiac workup with negative cardiac biomarkers noted as well as normal EKG. No further cardiac workup is planned at this time. Patient has a prior endoscopy done at the endoscopic clinic however she cannot recall her last scopes on the results but states she does have a vague memory of having an ulcer in the past. Patient states that she also has had a colonoscopy in the last several years with one polyp removed and was told to return in 5 years. She had a gallbladder ultrasound this morning which was negative and she was noted to have a HIDA scan ordered however she states this was canceled right prior to the procedure. Her H&H is stable at 12/34. BUN/ creatinine ratio is mildly elevated at 23. Home Medications Medication Instructions Recorded Confirmed Type Aspirin 325 mg PO BEDTIME 11/04/16 11/04/16 History Atorvastatin [Lipitor] 10 mg PO BEDTIME 11/04/16 11/04/16 History Esomeprazole Magnesium [Nexium] 20 mg PO BID 11/04/16 11/04/16 History Estrogens(Conj) Tab [Premarin Tab] 0.3 mg PO TUSA 11/04/16 11/04/16 History Fexofenadine [Karen] 180 mg PO BEDTIME 11/04/16 11/04/16 History Gemfibrozil [Gemfibrozil] 600 mg PO QAM 11/04/16 11/04/16 History Levothyroxine Tab [Synthroid Tab] 75 mcg PO DAILY@0700 11/04/16 11/04/16 History Losartan Potassium [Losartan 50 mg PO QAM 11/04/16 11/04/16 History Potassium] Metoprolol Succinate Xl [Toprol Xl] 25 mg PO QAM 11/04/16 11/04/16 History [place]-3/Dha/Epa/Fish Oil [Fish Oil 2 each PO BEDTIME 11/04/16 11/04/16 History 1,000 mg Softgel] Ropinirole HCl [Ropinirole HCl] 2 mg PO BEDTIME 11/04/16 11/04/16 History hydroCHLOROthiazide 25 mcg PO QAM 11/04/16 11/04/16 History [Hydrochlorothiazide] Allergies Allergy/AdvReac Type Severity Reaction Status Date / Time Sulfa (Sulfonamide Allergy HIVES Verified 11/04/16 17:56 Antibiotics) Medical,Surgical,& Family Hx - Medical History Cardio: History of: Hypertension Endocrine: History of: Dyslipidemia Rheumatology: History of;: Rheumatoid Arthritis Genitourinary: History of: Recurring Urinary Tract Infections Gastrointestinal: History of: GERD, GI Problems (constipation) - Family History Family History: Reports;: Family Cancer (skin grandfather), Family Diabetes, Family Heart Disease, Family Hypertension, Family Stroke - Social History Smoking Status: Never smoker Frequency of Alcohol Use: None Type of Drug Use: None 12 point system: reviewed and no additional remarkable complaints except as stated - Constitutional Constitutional: Present: as per HPI - EENT Eyes: Present: as per HPI Ears: Present: as per HPI Nose, mouth and throat: Present: as per HPI - Cardiovascular Cardiovascular: Present: as per HPI - Respiratory Respiratory: Present: as per HPI - Gastrointestinal Gastrointestinal: Present: as per HPI, abdominal pain - Genitourinary Genitourinary: Present: as per HPI - Musculoskeletal Musculoskeletal: Present: as per HPI - Neurological Neurological: Present: as per HPI - Psychiatric Psychiatric: Present: as per HPI - Endocrine Endocrine: Present: as per HPI - Hematologic/Lymphatic Hematologic/Lymphatic: Present: as per HPI Exam - Constitutional Vitals: Period Temp Pulse Resp BP Sys/Flores Pulse Ox Last 24 Hr 97.3 F-98.8 F 52-66 16-20 106-146/60-69 91-99 General appearance: normal weight, no acute distress - Head Head exam: Present: normal inspection, normocephalic - Eye Eye exam: Present: other (Lids and conjunctive are unremarkable). Absent: scleral icterus - ENT ENT exam: Present: normal exam, normal oropharynx - Neck Neck exam: Present: normal inspection - Respiratory Respiratory exam: Present: clear to auscultation bilaterally. Absent: rales, rhonchi, wheezes - Cardiovascular Cardiovascular exam: Present: regular rate and rhythm. Absent: diastolic murmur , JVD, systolic murmur - GI/Abdominal GI/Abdominal exam: Present: normal bowel sounds, soft. Absent: ascites, distended, mass, organomegaly, tenderness - Extremities Exam Extremities exam: Present: normal inspection, full ROM - Back Exam Back exam: Present: normal inspection - Neurological Exam Neurological exam: Present: alert, oriented X3 - Psychiatric Psychiatric exam: Present: normal affect, normal mood - Skin Skin exam: Present: normal color, warm, dry Results - Labs CBC & BMP: 11/06/16 05:08 11/06/16 05:08 Lab Results: I have reviewed the past 24 hour labs - Diagnostic Findings Procedure: Ultrasound: report reviewed by me <Eric Peña - Last Filed: 11/06/16 12:30> History of Present Illness History of present illness: Ms. Baez is a 71 year old female Exam - Constitutional Vitals: Period Temp Pulse Resp BP Sys/Flores Pulse Ox Last 24 Hr 97.3 F-98.8 F 52-67 14-20 106-156/60-94 91-99 Results - Labs CBC & BMP: 11/06/16 05:08 11/06/16 05:08
[2016-11-06] MEDS ORDERED: LIDOCAINE 2% 5 ML VIAL ONE (12:21)
[2016-11-06] MEDS ORDERED: PROPOFOL 200 MG/20 ML VIAL IV ONE (12:21)
--- NOTE | 2016-11-06 12:30 | History and Physical Update ---
History and Physical Update - History and Physical H&P was reviewed, the patient examined and there: are no changes in the patients condition since last H&P was completed. - Physical Exam Mental Status: alert and oriented Heart: regular rate and rhythm Lung: clear to auscultation Abdomen: within normal limits Vitals: within normal limits
--- NOTE | 2016-11-06 12:33 | Operative Note ---
Date of procedure: 11/06/16 Pre-op diagnosis: GERD, atypical chest pain Procedure: Procedure: Esophagogastroduodenoscopy Brief clinical abstract: 71-year-old female with history GERD is admitted with recent intermittent epigastric and substernal chest discomfort. This radiates into her back at times. Heartburn symptoms have been well controlled prior to admission on Nexium therapy. She denies difficulty swallowing. Nausea and vomiting are also denied. Indication for procedure: Atypical chest pain, long history of GERD Endoscopic findings:[After informed consent was obtained, the patient was placed in the left lateral decubitus position. The gastroscope was inserted in the upper esophagus under direct vision with no resistance encountered. Esophageal mucosa appeared normal with squamocolumnar junction sharply demarcated above a small hiatal hernia. The endoscope was advanced in the stomach which was carefully examined including retroflexed view of the cardia and fundus with no abnormalities noted. The pyloric channel, duodenal bulb, second and third portion of the duodenum appeared normal also. The endoscope was removed. She appeared to tolerate the procedure well. Impression: Small hiatal hernia-otherwise normal EGD Recommendations: Increase PPI to twice daily for now. If no etiology identified and symptoms persist, would probably do HIDA scan. Anesthesia: GETA (tiva) Surgeon / Physician: Eric Peña Estimated blood loss: none Specimens: none sent Condition: stable Disposition: post procedure unit Results - Labs CBC & BMP: 11/06/16 05:08 11/06/16 05:08 Discharge Plan - Discharge Medications No Action Aspirin 325 mg PO BEDTIME Ropinirole HCl [Ropinirole HCl] 2 mg PO BEDTIME Losartan Potassium [Losartan Potassium] 50 mg PO QAM Metoprolol Succinate Xl [Toprol Xl] 25 mg PO QAM hydroCHLOROthiazide [Hydrochlorothiazide] 25 mcg PO QAM [place]-3/Dha/Epa/Fish Oil [Fish Oil 1,000 mg Softgel] 2 each PO BEDTIME Estrogens(Conj) Tab [Premarin Tab] 0.3 mg PO TUSA Levothyroxine Tab [Synthroid Tab] 75 mcg PO DAILY@0700 Fexofenadine [Karen] 180 mg PO BEDTIME Gemfibrozil [Gemfibrozil] 600 mg PO QAM Esomeprazole Magnesium [Nexium] 20 mg PO BID Atorvastatin [Lipitor] 10 mg PO BEDTIME - Follow Up or Referral - Forms/Instructions
--- NOTE | 2016-11-06 12:38 | Anesthesia Post-Op ---
Anesthesia Post OP - Post Ansesthetic Evaluation Patient seen in post op: Yes Resp: within normal limits CV: within normal limits Mental: within normal limits Temp: within normal limits [id number]: within normal limits Nausea and Vomiting: within normal limits Pain: within normal limits
[2016-11-06] MEDS: ENOXAPARIN 40 MG/0.4 ML SYRINGE SUBCUT SCH (14:30)
[2016-11-06] MEDS: METOPROLOL SUCCINATE XL 25 MG TABLET PO SCH (14:30)
[2016-11-06] MEDS: LOSARTAN 50 MG TABLET PO SCH (14:30)
[2016-11-06] MEDS: GEMFIBROZIL 600 MG TABLET PO SCH (14:30)
[2016-11-06] MEDS: DOCUSATE SODIUM 100 MG CAPSULE PO SCH ×2 (14:30→21:16)
[2016-11-06] MEDS: hydroCHLOROthiazide 25 MG TABLET PO SCH (14:30)
[2016-11-06] MEDS: PANTOPRAZOLE 40 MG TABLET PO SCH ×2 (14:30→21:17)
[2016-11-06] MEDS: rOPINIRole 1 MG TABLET PO SCH (21:16)
[2016-11-06] MEDS: FEXOFENADINE 180 MG TABLET PO SCH (21:16)
[2016-11-06] MEDS: ASPIRIN 325 MG TABLET PO SCH (21:16)
[2016-11-06] MEDS: ATORVASTATIN 10 MG TABLET PO SCH (21:17)
[2016-11-06] MEDS: OMEGA 3 ACID ETHYL ESTERS 1 GM CAPSULE PO SCH (21:17)
[2016-11-07] MEDS: SODIUM CHLORIDE 0.9% 1,000 ML IV SCH (01:14)
[2016-11-07] MEDS: NITROGLYCERIN 2% OINT 1 INCH/GM PACK TOP SCH ×2 (01:15→06:46)
--- NOTE | 2016-11-07 07:09 | Discharge Summary ---
Hospital Course - Hospital Course Hospital Course: Patient 71-year-old white female admitted through the emergency room with substernal chest pain. Patient was noted to have an unremarkable EKG and cardiac isoenzymes were negative. She was seen in consultation by cardiology and they felt she can get an outpatient workup. She has had a fairly recent stress thallium study which was unremarkable. Patient did have quite a bit of GI symptoms and she had a gallbladder ultrasound that was unremarkable and her HIDA scan is pending this morning. Patient was seen in consultation by Dr. Edilberto Peña and underwent EGD on 11/06/2016 that showed hiatal hernia but no clear reason for her discomfort. Patient be discharged later this afternoon if her HIDA scan is unremarkable. I will make her follow-up appointment with her regular pharmacy billing adjudicator Dr. Elmore. Diagnosis - Discharge Diagnosis (1) Atypical chest pain Status: Acute (2) GERD (gastroesophageal reflux disease) Status: Chronic Discharge Plan - Discharge Data Disposition: Disch To Home/Self Care Condition at Discharge: Stable Discharge Diet: advance to your usual diet Activity: resume usual activities as tolerated Hygiene: no restrictions Weight Bearing at Discharge: full weight bearing Driving: no restrictions Contact your physician if you experience:: Shortness of breath - Discharge Medications New Nitroglycerin Sl Tab [Nitrostat] 0.4 mg SL Q5M PRN #25 tablet PRN Reason: Chest Pain Atorvastatin [Lipitor] 10 mg PO BEDTIME tablet Pantoprazole Tab [Protonix Tab] 40 mg PO BID tablet Pantoprazole Tab [Protonix Tab] 40 mg PO BID #60 tablet Continue Aspirin 325 mg PO BEDTIME Ropinirole HCl 2 mg PO BEDTIME Losartan Potassium 50 mg PO QAM Metoprolol Succinate Xl [Toprol Xl] 25 mg PO QAM hydroCHLOROthiazide [Hydrochlorothiazide] 25 mcg PO QAM [place]-3/Dha/Epa/Fish Oil [Fish Oil 1,000 mg Softgel] 2 each PO BEDTIME Estrogens(Conj) Tab [Premarin Tab] 0.3 mg PO TUSA Levothyroxine Tab [Synthroid Tab] 75 mcg PO DAILY@0700 Fexofenadine [Karen] 180 mg PO BEDTIME Gemfibrozil 600 mg PO QAM Discontinued Esomeprazole Magnesium [Nexium] 20 mg PO BID No Action Atorvastatin [Lipitor] 10 mg PO BEDTIME - Follow Up or Referral Follow Up: Colin Elmore MD [Physician] - 1 Week - Forms/Instructions Exam - Constitutional Vitals: Period Temp Pulse Resp BP Sys/Flores Pulse Ox Last 24 Hr 96.7 F-98.2 F 52-84 12-18 106-156/57-068 90-98 Exam: Objective well-developed white female no acute distress. She is able give an excellent history. She appears comfortable states she does not have any pain at present. She did have a little discomfort last night. Cardiovascular: The heart rate is regular without murmurs or gallops. Respiratory: Lungs clear to auscultation bilaterally. Abdomen: Abdomen soft nontender to palpation. Extremities: There is no calf swelling or tenderness. Discharge Results Procedures and tests throughout hospitalization: Pending Orders 11/05/16 Occult Blood, Stool Routine 11/07/16 04:00 HIDA Scan [NM hepatobiliary] IN AM DS: Provider Date of admission: 11/04/16 21:17 Primary care physician: . No PCP Attending physician on admission: Adalberto Neal MD Consults: 11/04/16 21:56 Consult to Case Mgmt/Social Srvs [CONS] Routine Reason for Case Mgmt/Social Srvs: Discharge Planning 11/05/16 17:35 Consult to Physician [CONS] Routine Comment: Consulting Provider: Eric Peña Consult to Specialist Group: Gastroenterology Consult Notification Comment: text consult to Joyce at [phone] office returned call [phone] Discharging clinician: Adalberto Neal MD Expected date of discharge: 11/07/16
[2016-11-07 08:07] VITALS: BP 121/77
[2016-11-07] MEDS: GEMFIBROZIL 600 MG TABLET PO SCH (09:58)
[2016-11-07] MEDS: DOCUSATE SODIUM 100 MG CAPSULE PO SCH (09:58)
[2016-11-07] MEDS: LOSARTAN 50 MG TABLET PO SCH (09:58)
[2016-11-07] MEDS: METOPROLOL SUCCINATE XL 25 MG TABLET PO SCH (09:58)
[2016-11-07] MEDS: LEVOTHYROXINE 75 MCG TABLET PO SCH (09:58)
[2016-11-07] MEDS: hydroCHLOROthiazide 25 MG TABLET PO SCH (09:58)
[2016-11-07] MEDS: PANTOPRAZOLE 40 MG TABLET PO SCH (09:58)
== END 2016-11-07 10:30 | disposition home or self-care (01) | DRG 313 ==
LOC: N.ED 17:16 → N.EDINP 21:17 → N.TELES 11-05 13:23
PROVIDERS: ADMIT Family Medicine; ATTEND Family Medicine

== ENCOUNTER 2019-03-12 11:38 | Inpatient (IN) ==
[2019-03-12] MEDS ORDERED: ACETAMINOPHEN 325 MG TABLET PO PRN (11:48)
[2019-03-12] MEDS ORDERED: LACTULOSE 20 GM/30 ML UDCUP PO PRN (11:48)
[2019-03-12] MEDS ORDERED: MAGNESIUM SULF RIDER 2 GM in PREMIX 1 EACH IV PRN (11:48)
[2019-03-12] MEDS ORDERED: ONDANSETRON 4 MG/2 ML VIAL IV PRN (11:48)
[2019-03-12] MEDS ORDERED: MAGNESIUM SULF RIDER 4 GM in PREMIX 1 EACH IV PRN (11:48)
[2019-03-12] MEDS ORDERED: ZALEPLON 5 MG CAPSULE PO PRN (11:48)
[2019-03-12 13:30] LABS: Basophils # 0.1 10*3/uL (0.0-0.2); Basophils % 0.7 % (0.0-0.8); Eosinophils # 0.1 10*3/uL (0.0-0.87); Eosinophils % 1.9 % (0.00-10.9); Hematocrit 36.3 VOL% (35.7-47.0); Hemoglobin 12.7 GM/DL (12.0-16.0); Immature Granulocytes % 0.4 %; Immature Granulocytes Absolute 0.03 #; Lymphocytes # 3.4 10*3/uL (1.4-4.0); Lymphocytes % 49.8 % (21.3-54.2); Mean Corpuscular Volume 87.3 FL (87-102); Monocytes % 8.2 % (1.7-12.7); Platelet Count 317 T/CUMM (130-400); Red Blood Count 4.16 MC/CUMM (3.8-5.5); Red Cell Distribution Width 12.2 % (9.3-17.3); White Blood Count 6.9 T/CUMM (4-12)
[2019-03-12 13:49] LABS: Albumin 4.1 G/DL (3.4-5.0); Bilirubin,Total 0.6 MG/DL (0.2-1.0); Calcium 9.4 MG/DL (8.5-10.1); Osmolality,Calculated 269.4 MOS/KG (273-304); Total Protein 7.4 G/DL (6.4-8.3)
[2019-03-12] MEDS ORDERED: NITROGLYCERIN SL 0.4 MG TABLET SL PRN (15:24)
[2019-03-12] MEDS ORDERED: SODIUM CHLORIDE 0.9% 1,000 ML IV SCH (16:00)
[2019-03-12] MEDS: FLECAINIDE 50 MG TABLET PO SCH ×2 (16:29→21:39)
[2019-03-12] MEDS: SODIUM CHLORIDE 0.45% 1,000 ML IV SCH (16:36)
[2019-03-12] MEDS: rOPINIRole 1 MG TABLET PO SCH (21:30)
[2019-03-12] MEDS: CETIRIZINE 10 MG TABLET PO SCH (21:30)
[2019-03-12] MEDS: ATORVASTATIN 10 MG TABLET PO SCH (21:31)
[2019-03-12] MEDS: OMEGA 3 ACID ETHYL ESTERS 1 GM CAPSULE PO SCH (21:31)
[2019-03-12] MEDS: APIXABAN 5 MG TABLET PO SCH (21:31)
[2019-03-12] MEDS: gemfibroziL 600 MG TABLET PO SCH (21:31)
[2019-03-12] MEDS: traZODone 50 MG TABLET PO SCH (21:34)
[2019-03-13] MEDS: LEVOTHYROXINE 75 MCG TABLET PO SCH (05:39)
[2019-03-13] MEDS ORDERED: ESTROGENS (CONJ) 0.3 MG TABLET PO SCH (09:00)
[2019-03-13] MEDS: PANTOPRAZOLE 40 MG TABLET PO SCH (09:41)
[2019-03-13] MEDS: METOPROLOL SUCCINATE XL 25 MG TABLET PO SCH (09:41)
[2019-03-13] MEDS: hydroCHLOROthiazide 12.5 MG CAPSULE PO SCH (09:41)
[2019-03-13] MEDS: APIXABAN 5 MG TABLET PO SCH ×2 (09:41→21:15)
[2019-03-13] MEDS: FLECAINIDE 50 MG TABLET PO SCH ×2 (09:41→21:16)
[2019-03-13] MEDS: DILTIAZEM CD 120 MG CAPSULE PO SCH (09:42)
[2019-03-13] MEDS: LOSARTAN 50 MG TABLET PO SCH (09:42)
[2019-03-13] MEDS: gemfibroziL 600 MG TABLET PO SCH ×2 (09:42→21:16)
[2019-03-13] MEDS: SODIUM CHLORIDE 0.45% 1,000 ML IV SCH (18:42)
[2019-03-13] MEDS: rOPINIRole 1 MG TABLET PO SCH (21:14)
[2019-03-13] MEDS: OMEGA 3 ACID ETHYL ESTERS 1 GM CAPSULE PO SCH (21:15)
[2019-03-13] MEDS: ATORVASTATIN 10 MG TABLET PO SCH (21:15)
[2019-03-13] MEDS: CETIRIZINE 10 MG TABLET PO SCH (21:15)
[2019-03-13] MEDS: traZODone 50 MG TABLET PO SCH (21:16)
[2019-03-14 05:24] LABS: Basophils % 0.7 % (0.0-0.8); Eosinophils # 0.1 10*3/uL (0.0-0.87); Eosinophils % 2.1 % (0.00-10.9); Hematocrit 34.3 VOL% (35.7-47.0); Hemoglobin 11.9 GM/DL (12.0-16.0); Immature Granulocytes % 0.3 %; Immature Granulocytes Absolute 0.02 #; Lymphocytes % 49.7 % (21.3-54.2); Mean Corpuscular HGB Conc 34.7 GM/DL (32-36); Mean Corpuscular Volume 87.5 FL (87-102); Mean Platelet Volume 9.4 FL (9.6-12.0); Monocytes % 9.6 % (1.7-12.7); Neutrophils % 37.6 % (38.7-73.9); Platelet Count 302 T/CUMM (130-400); Red Blood Count 3.92 MC/CUMM (3.8-5.5); Red Cell Distribution Width 12.2 % (9.3-17.3); White Blood Count 6.1 T/CUMM (4-12)
[2019-03-14 05:54] LABS: Calcium 8.8 MG/DL (8.5-10.1)
[2019-03-14 06:01] LABS: Atypical Lymphocytes Few; Eosinophils 4 % (0-10); Hypochromasia Slight; Lymphocytes 48 % (20-55); Segmented Neutrophils 43 % (50-85); Total Cells Counted 100
[2019-03-14 06:02] LABS: Microcytosis 1+; Platelet Estimate Normal
[2019-03-14] MEDS: LEVOTHYROXINE 75 MCG TABLET PO SCH (06:28)
[2019-03-14] MEDS ORDERED: POTASSIUM CHLORIDE 20 MEQ PACK PO ONE ×2 (09:00→14:50)
[2019-03-14] MEDS: DILTIAZEM CD 120 MG CAPSULE PO SCH (09:59)
[2019-03-14] MEDS: APIXABAN 5 MG TABLET PO SCH (09:59)
[2019-03-14] MEDS: gemfibroziL 600 MG TABLET PO SCH (09:59)
[2019-03-14] MEDS: LOSARTAN 50 MG TABLET PO SCH (09:59)
[2019-03-14] MEDS: METOPROLOL SUCCINATE XL 25 MG TABLET PO SCH (09:59)
[2019-03-14] MEDS: PANTOPRAZOLE 40 MG TABLET PO SCH (09:59)
[2019-03-14] MEDS: FLECAINIDE 50 MG TABLET PO SCH (09:59)
[2019-03-14] MEDS: hydroCHLOROthiazide 12.5 MG CAPSULE PO SCH (10:00)
[2019-03-14 16:09] VITALS: BP 113/70
[2019-03-16] MEDS ORDERED: ESTROGENS (CONJ) 0.3 MG TABLET PO SCH (09:00)
== END 2019-03-14 18:45 | disposition home or self-care (01) | DRG 310 ==
LOC: N.TELES 12:28
PROVIDERS: ADMIT Internal Medicine Cardiovascular Disease; ATTEND Internal Medicine Cardiovascular Disease

== ENCOUNTER 2020-12-18 18:28 | Inpatient (IN) ==
[2020-12-18] MEDS ORDERED: GLUCAGON 1 MG VIAL IV STA (18:49)
[2020-12-18] MEDS ORDERED: ALBUTEROL 2.5 MG/3 ML NEB RESP TX STA (18:49)
[2020-12-18] MEDS ORDERED: ATROPINE 1 MG/10 ML SYRINGE IV STA (18:49)
[2020-12-18 18:54] LABS: Basophils # 0.1 10*3/uL (0.0-0.2); Basophils % 0.6 % (0.0-0.8); Eosinophils # 0.1 10*3/uL (0.0-0.87); Eosinophils % 0.9 % (0.00-10.9); Hematocrit 35.3 VOL% (35.7-47.0); Hemoglobin 12.1 GM/DL (12.0-16.0); Immature Granulocytes % 0.5 %; Immature Granulocytes Absolute 0.05 #; Lymphocytes # 5.1 10*3/uL (1.4-4.0); Lymphocytes % 52.7 % (21.3-54.2); Mean Corpuscular HGB Conc 34.3 GM/DL (32-36); Mean Corpuscular Volume 87.6 FL (87-102); Mean Platelet Volume 8.8 FL (9.6-12.0); Monocytes % 5.6 % (1.7-12.7); Neutrophils % 39.7 % (38.7-73.9); Platelet Count 362 T/CUMM (130-400); Red Blood Count 4.03 MC/CUMM (3.8-5.5); Red Cell Distribution Width 12.7 % (9.3-17.3); White Blood Count 9.7 T/CUMM (4-12)
[2020-12-18 19:04] LABS: INR 1.1
[2020-12-18 19:18] LABS: Albumin 3.9 G/DL (3.4-5.0); Bilirubin,Total 0.4 MG/DL (0.20-1.00); Calcium 9.5 MG/DL (8.5-10.1); Osmolality,Calculated 268.7 MOS/KG (273-304); Potassium 3.7 MMOL/L (3.5-5.1); Total Protein 6.5 G/DL (6.4-8.2)
[2020-12-18] MEDS ORDERED: SODIUM CHLORIDE 0.9% 1,000 ML IV STA (19:24)
[2020-12-18] MEDS ORDERED: ONDANSETRON 4 MG/2 ML VIAL IV STA (20:17)
[2020-12-18] MEDS ORDERED: ONDANSETRON 4 MG/2 ML VIAL ONE (20:18)
[2020-12-18] MEDS ORDERED: ACETAMINOPHEN 325 MG TABLET PO PRN (20:23)
[2020-12-18] MEDS ORDERED: ONDANSETRON 4 MG/2 ML VIAL IV PRN (20:23)
[2020-12-18] MEDS: DOCUSATE SODIUM 100 MG CAPSULE PO SCH (22:07)
[2020-12-19] MEDS ORDERED: ATROPINE 1 MG/10 ML SYRINGE IV ONE (07:57)
[2020-12-19] MEDS ORDERED: PANTOPRAZOLE 40 MG TABLET PO SCH (09:00)
[2020-12-19] MEDS ORDERED: rOPINIRole 1 MG TABLET PO PRN (09:25)
[2020-12-19] MEDS ORDERED: [UNRECOGNIZED DRUG - OTHER] BOTH EYES PRN (09:25)
[2020-12-19] MEDS ORDERED: ATROPINE 1 MG/10 ML SYRINGE IV PRN (09:27)
[2020-12-19] MEDS: DOCUSATE SODIUM 100 MG CAPSULE PO SCH ×2 (09:30→22:21)
[2020-12-19] MEDS: buPROPion 75 MG TABLET PO SCH ×2 (09:30→22:21)
[2020-12-19] MEDS ORDERED: DEXTROSE 50% 25 GM/50 ML VIAL IV PRN (12:11)
[2020-12-19] MEDS ORDERED: GLUCAGON 1 MG VIAL IM PRN (12:11)
[2020-12-19] MEDS: INSULIN REGULAR 100 UNIT/ML SUBCUT SCH ×2 (17:23→22:31)
[2020-12-19] MEDS: gemfibroziL 600 MG TABLET PO SCH (22:20)
[2020-12-19] MEDS: ATORVASTATIN 10 MG TABLET PO SCH (22:21)
[2020-12-19] MEDS: OMEGA 3 ACID ETHYL ESTERS 1 GM CAPSULE PO SCH (22:21)
[2020-12-19] MEDS: LATANOPROST 0.005% OPH SOLN 2.5 ML BOTTLE BOTH EYES SCH (22:21)
[2020-12-19] MEDS: CETIRIZINE 10 MG TABLET PO SCH (22:21)
[2020-12-19] MEDS: traZODone 50 MG TABLET PO SCH (22:21)
[2020-12-20] MEDS: DOCUSATE SODIUM 100 MG CAPSULE PO SCH ×2 (10:07→21:27)
[2020-12-20] MEDS: buPROPion 75 MG TABLET PO SCH ×2 (10:08→21:28)
[2020-12-20] MEDS: gemfibroziL 600 MG TABLET PO SCH ×2 (10:08→21:28)
[2020-12-20] MEDS: PANTOPRAZOLE 40 MG TABLET PO SCH (10:08)
[2020-12-20] MEDS: LEVOTHYROXINE 75 MCG TABLET PO SCH (10:08)
[2020-12-20] MEDS: FLECAINIDE 100 MG TABLET PO SCH ×2 (10:09→21:28)
[2020-12-20] MEDS: LOSARTAN 50 MG TABLET PO SCH (10:09)
[2020-12-20] MEDS: INSULIN REGULAR 100 UNIT/ML SUBCUT SCH ×3 (10:18→21:27)
[2020-12-20] MEDS: LATANOPROST 0.005% OPH SOLN 2.5 ML BOTTLE BOTH EYES SCH (21:27)
[2020-12-20] MEDS: OMEGA 3 ACID ETHYL ESTERS 1 GM CAPSULE PO SCH (21:28)
[2020-12-20] MEDS: CETIRIZINE 10 MG TABLET PO SCH (21:28)
[2020-12-20] MEDS: ATORVASTATIN 10 MG TABLET PO SCH (21:28)
[2020-12-20] MEDS: traZODone 50 MG TABLET PO SCH (21:28)
[2020-12-21] MEDS: FLECAINIDE 100 MG TABLET PO SCH (08:01)
[2020-12-21] MEDS: PANTOPRAZOLE 40 MG TABLET PO SCH (08:02)
[2020-12-21] MEDS: LOSARTAN 50 MG TABLET PO SCH (08:02)
[2020-12-21] MEDS: DOCUSATE SODIUM 100 MG CAPSULE PO SCH (08:02)
[2020-12-21] MEDS: buPROPion 75 MG TABLET PO SCH (08:02)
[2020-12-21] MEDS: gemfibroziL 600 MG TABLET PO SCH (08:02)
[2020-12-21] MEDS: LEVOTHYROXINE 75 MCG TABLET PO SCH (08:02)
[2020-12-21] MEDS: INSULIN REGULAR 100 UNIT/ML SUBCUT SCH ×2 (08:09→13:07)
[2020-12-21] MEDS ORDERED: ASPIRIN CHEW 81 MG TABLET PO SCH (09:00)
[2020-12-21 09:08] VITALS: BP 149/65
[2020-12-23] MEDS ORDERED: ESTROGENS (CONJ) 0.3 MG TABLET PO SCH (09:00)
== END 2020-12-21 12:05 | disposition home or self-care (01) | DRG 309 ==
LOC: N.EDINP 18:28 → N.ED 18:28 → N.TELES 21:48
PROVIDERS: ADMIT Family Medicine; ATTEND Family Medicine